=== PATIENT | male | born 1945 | race Caucasian/White ===

== ENCOUNTER 2019-11-22 14:24 | Inpatient (IN) | payer OTHER ==
[~2019-11-22] VITALS: Ht 165.1 cm; Wt 73.9 kg
[~2019-11-22 14:24] MED LIST: ASPIRIN EC325 M1 PO; B12INJ; FEVERALL JR 32325 MG RECTAL; FLAGYL500 MG PO; GLIPIZIDE ER10 MG PO; LEVAQUIN 500 M500 M2 PO; LISINOPRIL5 MG PO; LOPRESSOR50 PO; MUCINEX600 MG PO; OMEPRAZOLE 20 M20 M1 PO; PREDNISONE 10 M10 M1 PO; SIMVASTATIN80 MG; TAMSULOSIN HCL0.4 MG PO
[2019-11-22 14:56] LABS: ABSOLUTE LYMPHOCYTES 0.6 thou/uL (0.8-5.3); ABSOLUTE MONOCYTES 0.3 thou/uL (0.0-1.2); ABSOLUTE NEUTROPHILS 4.1 thou/uL (1.6-8.1); EOSINOPHILS 0.6 %; HEMATOCRIT 41.3 % (42.0-52.0); HEMOGLOBIN 14.1 gm/dL (14.0-18.0); MCH 29.7 pg (26.0-34.0); MCHC 34.2 g/dL (28.0-37.0); MCV 86.8 fL (80.0-100.0); MONOCYTES 6.3 %; MPV 8.8 fl. (7.2-11.1); NUCLEATED RBCS 0 /100WBC; PLATELET COUNT* 183 thou/uL (150-400); POLYS 81.1 %; RBC 4.75 mil/uL (4.50-6.00); RDW-CV 13.3 % (10.5-14.5)
[2019-11-22 15:04] LABS: CALCIUM 8.5 mg/dL (8.5-10.1); CREATININE 1.3 mg/dL (0.6-1.3); POTASSIUM 4.9 mmol/L (3.5-5.1)
[2019-11-22 15:07] LABS: APTT 24.8 Seconds (25.0-31.3); PROTIME 10.3 Seconds (9.20-11.50)
[2019-11-22] MEDS ORDERED: METFORMIN HCL500 M3 PO (15:16)
[2019-11-22] MEDS ORDERED: ALOGLIPTIN12.5 MG PO (15:16)
[2019-11-22] MEDS ORDERED: LIPITOR40 MG PO (15:16)
[2019-11-22 15:17] LABS: ALBUMIN 3.2 g/dL (3.4-5.0); CK-MB MASS 1.4 ng/mL (<0.5-3.6); MAGNESIUM 1.9 mg/dL (1.8-2.4); TOTAL BILIRUBIN 0.6 mg/dL (<0.1-1.0)
[2019-11-22] MEDS ORDERED: SLOW FE142 MG PO (15:18)
[2019-11-22] MEDS ORDERED: FOLIC ACID1 MG PO (15:18)
[2019-11-22] MEDS ORDERED: FISH OIL 1,0001 EAC9 PO (15:19)
[2019-11-22] MEDS ORDERED: GARLIC OIL1000 MG PO (15:19)
[2019-11-22 22:23] VITALS: BP 136/38
[2019-11-22 22:50] VITALS: BP 154/50
[2019-11-23 04:00] VITALS: BP 138/63
--- NOTE | 2019-11-23 05:57 | NUR ---
Assumed pt care at 2250, Aox4, up with assist- gait unsteady. O2 sat 90's 2L NC. Pt Sinus sahara. Pt denies pain. Admission assessment as charted. NIH scored 1. Pt state he is having double vision. IVF infussing as ordered. Fall precaution in placed. Pt NPO for cardiology consult. Pt for neuro, PT/OT/ST consult. Will continue to monitor.
[2019-11-23 07:47] LABS: ABSOLUTE BASOPHILS 0.1 thou/uL (0.0-0.2); ABSOLUTE EOSINOPHILS 0.1 thou/uL (0.0-0.7); ABSOLUTE LYMPHOCYTES 0.6 thou/uL (0.8-5.3); ABSOLUTE MONOCYTES 0.4 thou/uL (0.0-1.2); HEMATOCRIT 39.8 % (42.0-52.0); HEMOGLOBIN 13.6 gm/dL (14.0-18.0); LYMPHOCYTES 11.1 %; MCH 29.5 pg (26.0-34.0); MCHC 34.2 g/dL (28.0-37.0); MCV 86.3 fL (80.0-100.0); MONOCYTES 8.6 %; MPV 8.4 fl. (7.2-11.1); NUCLEATED RBCS 0 /100WBC; PLATELET COUNT* 165 thou/uL (150-400); POLYS 78.3 %; RBC 4.61 mil/uL (4.50-6.00); RDW-CV 13.6 % (10.5-14.5); WBC 5.1 thou/uL (4.0-11.0)
[2019-11-23 08:00] VITALS: BP 165/60
[2019-11-23 08:06] LABS: ANION GAP 8 mmol/L (7-16); BUN 10 mg/dL (7-18); CALCIUM 8.4 mg/dL (8.5-10.1); CHLORIDE 106 mmol/L (98-107); CHOLESTEROL 116 mg/dL (<200); CO2 26 mmol/L (21-32); CREATININE 1.3 mg/dL (0.6-1.3); GLUCOSE 126 mg/dL (70-99); HDL CHOLESTEROL 39 mg/dL (>40); LDL CHOLESTEROL 44 mg/dL (<100); POTASSIUM 4.2 mmol/L (3.5-5.1); SERUM ASSESSMENT Clear; SODIUM 140 mmol/L (136-145); TRIGLYCERIDE 167 mg/dL (<150); VLDL 33 mg/dL (<40)
--- NOTE | 2019-11-23 09:01 | EKG ---
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 : 1945 Requested By: Jason Plascencia Order Number: [id number] MD: Ye Moreau Measurements Intervals [place] Rate: 39 P: -30 LA: 216 QRS: -58 QRSD: 115 T: 117 QT: 497 QTc: 401 Interpretive Statements Sinus bradycardia Left anterior fascicular block Possible anterior infarct, age indeterminate Compared to ECG 07/05/2012 17:09:50 Left anterior fascicular block now present Sinus rhythm no longer present Myocardial infarct finding still present Electronically Signed On 11-23-2019 9:00:46 CDT by Ye Moreau [email or web address] <ELECTRONICALLY SIGNED> By: Ye Moreau MD, [facility] 11/23/19 0900 1446 144 Ye Moreau MD, [facility] /EPI
[2019-11-23 11:57] VITALS: BP 172/71
--- NOTE | 2019-11-23 15:13 | NUR ---
Pt is A&O. Resides at home with his dtr and RAKESH. Independent, family assists as needed. Pt has a walker and cane that he uses for mobility. Hx of HH. No hx of SNF. Goal is home at vt. Following.
--- NOTE | 2019-11-23 16:12 | 2DMMODE ---
[place] [address] 2 D/M-MODE ECHOCARDIOGRAM Name: ELVIRA,JOHN Room: [address] IN .R.#: [id number] Admission: 11/22/19 Attend Phys: Baldomero Neal, Discharge: Date of : 45 Date of Service: 11/23/19 1611 Report #: [id number] THIS REPORT FOR: cc: [facility] - Clinic physician unknown [facility] - Clinic physician unknown Ye Moreau MD [facility] ~ APPROVED REPORT Study performed: 11/23/2019 12:39:05 EXAM: Comprehensive 2D, Doppler, and color-flow Echocardiogram Patient Location: In-Patient BSA: 1.86 HR: 53 bpm BP: 138/63 mmHg Other Information Study Quality: Fair Indications CVA/TIA Bradycardia Echo Enhancing Agent Indication: Rule out Shunt Agent(s) / Amount(s) Used: Agitated Saline cc 2D Dimensions IVSd: 13.60 (7-11mm) LVOT Diam: 18.07 (18-24mm) LVDd: 49.29 mm PWd: 10.49 (7-11mm) Ascending Ao: 31.76 (22-36mm) LVDs: 41.95 (25-40mm) Aortic Root: 31.58 mm Volumes Left Atrial Volume (Systole) LA ESV Index: 19.30 mL/m2 Aortic Valve AoV Peak Reji.: 1.12 m/s AO Peak Gr.: 5.00 mmHg LVOT Max P.94 mmHg AO Mean Gr.: 2.71 mmHg LVOT Mean P.47 mmHg LVOT Max V: 0.99 m/[place] [address] 2 D/M-MODE ECHOCARDIOGRAM Name: RENETTA FELIX Room: [address] IN .R.#: [id number] Admission: 11/22/19 Attend Phys: Baldomero Neal, Discharge: Date of : 45 Date of Service: 11/23/19 1611 Report #: [id number] AO V2 VTI: 25.01 cm LVOT Mean V: 0.53 m/s TALI (VTI): 2.46 cm2 LVOT V1 VTI: 23.97 cm Mitral Valve E/A Ratio: 1.64 MV Decel. Time: 174.04 ms MV E Max Reji.: 0.80 m/s MV PHT: 50.47 ms MVA (PHT): 4.36 cm2 TDI E/Lateral E': 13.33 E/Medial E': 10.00 Medial E' Reji.: 0.08 m/s Lateral E' Reji.: 0.06 m/s Pulmonary Valve PV Peak Reji.: 0.86 m/s PV Peak Gr.: 2.96 mmHg Tricuspid Valve RAP Estimate: 5.00 mmHg TR Peak Gr.: 12.25 mmHg RVSP: 17.25 mmHg PA Pressure: 17.25 mmHg Left Ventricle The left ventricle is normal size. There is akinesis of the distal anterior anteroseptal and apical mathias. There is normal left ventricular wall thickness. Left ventricular systolic function is mild to moderately decreased. LVEF is 40-45%. Transmitral Doppler flow pattern suggests pseudonormalization. Right Ventricle The right ventricle is normal size. The right ventricular systolic function is normal. Atria The left atrium size is normal. Injection of bubbles documented no interatrial shunt. The right atrium size is normal. Aortic Valve The aortic valve is normal in structure. No aortic regurgitation is present. There is no aortic valvular stenosis. Mitral Valve The mitral valve is normal in structure. There is no mitral valve regurgitation noted. No evidence of [place] [address] 2 D/M-MODE ECHOCARDIOGRAM Name: RENETTA FELIX Room: [address] IN .R.#: [id number] Admission: 11/22/19 Attend Phys: Baldomero Neal, Discharge: Date of : 45 Date of Service: 11/23/19 1611 Report #: [id number] Tricuspid Valve The tricuspid valve is normal in structure. Trace tricuspid regurgitation. Pulmonic Valve The pulmonary valve is normal in structure. There is no pulmonic valvular regurgitation. Great Vessels The aortic root is normal in size. IVC is normal in size and collapses >50% with inspiration. Pericardium There is no pericardial effusion. <Conclusion> The left ventricle is normal size. There is normal left ventricular wall thickness. Left ventricular systolic function is mild to moderately decreased. LVEF is 40-45%. Transmitral Doppler flow pattern suggests pseudonormalization. There is akinesis of the distal anterior anteroseptal and apical mathias. Injection of bubbles documented no interatrial shunt. Trace tricuspid regurgitation. IVC is normal in size and collapses >50% with inspiration. <ELECTRONICALLY SIGNED> By: Ye Moreau MD, FACC 11/23/191610 10 10 Ye Moreau MD, FACC /INF
[2019-11-23 17:40] VITALS: BP 128/68
--- NOTE | 2019-11-23 19:00 | NUR ---
ASSUMED PT CARE AT 0730. ASSESSMENT COMPLETED CHARTED. ABLE TO MAKE NEEDS KNOWN. UP WITH 1 TO BSC. DOUBLE VISION STILL HAPPENING. PT TRIES TO GET UP WITHOUT CALLING OUT FREQUENTLY AND REEDUCATING EACH TIME. IV FLUIDS RUNNING PER EMAR. WILL CONTINUE TO MONITOR.
[2019-11-23 20:30] VITALS: BP 190/82
--- NOTE | 2019-11-23 20:30 | NUR ---
RECEIVED REPORT AND ASSUMED CARE OF PT EARLIER, ASSESSMENT COMPLETED AT THIS TIME. ASSISTED TO BSC, STEADY. TELEMETRY ON SHOWING SB. WILL CONT TO MONITOR AND ASSIST NEEDED.
[2019-11-24] VITALS: BP 169/64
[2019-11-24 02:06] LABS: GLYCOHEMOGLOBIN (HGB A1C) 6.4 % (4.8-5.6)
[2019-11-24 02:06] LABS: LDL (DIRECT) CHOL 56 mg/dL (0-99)
[2019-11-24 04:00] VITALS: BP 159/62
[2019-11-24 04:53] LABS: HEMOGLOBIN 13.7 gm/dL (14.0-18.0); MCH 29.2 pg (26.0-34.0); MCHC 33.5 g/dL (28.0-37.0); MCV 87.2 fL (80.0-100.0); NUCLEATED RBCS 0 /100WBC; PLATELET COUNT* 176 thou/uL (150-400); RBC 4.71 mil/uL (4.50-6.00); RDW-CV 13.4 % (10.5-14.5); WBC 4.3 thou/uL (4.0-11.0)
[2019-11-24 05:17] LABS: CALCIUM 8.3 mg/dL (8.5-10.1); CREATININE 1.1 mg/dL (0.6-1.3); POTASSIUM 4.6 mmol/L (3.5-5.1)
[2019-11-24 06:50] LABS: ABSOLUTE LYMPHOCYTES 0.2 thou/uL (0.8-5.3); PLATELET ESTIMATE ADEQUATE
--- NOTE | 2019-11-24 06:55 | NUR ---
AWAKE OCC DURING NIGHT TO BE ASSISTED TO BSC. VOIDING WITHOUT DIFFICULTY. PT REMAINS UP IN CHAIR THIS MORNING. STATES ABOUT 3 WHEN HE WAS AWAKE VISION WAS SINGLE BUT SOON AFTER VISION RETURNED TO DOUBLE. TELEMETRY CONT TO SHOW SB, DENIES DIZZINESS OR LIGHTHEADNESS. HS GOALS OF REST AND SAFETY ACHIEVED. HOURLY ROUNDING OBSERVED.
[2019-11-24 08:00] VITALS: BP 161/68
[2019-11-24] MEDS ORDERED: PLAVIX 75 MG TA75 M1 PO (10:27)
[2019-11-24] MEDS ORDERED: NORVASC5 MG PO (10:27)
[2019-11-24 13:00] VITALS: BP 161/68
[2019-11-24 13:49] VITALS: BP 135/61
--- NOTE | 2019-11-24 14:44 | NUR ---
ASSUMED PT CARE AT 0730. ASSESSMENT COMPLETED CHARTED. ABLE TO MAKE NEEDS KNOWN. NO C/O PAIN OR DISCOMFORT. UP WITH SBA DUE TO UNSTEADYNESS. DISCHARGE APPROVED. DISCHARGE COMPLETED AND WENT OVER WITH PT AND DAUGHTER. IV AND HEART MONITOR REMOVED. PT TAKEN DOWN TO DAUGHTERS CAR AT AROUND 1430. NO COMMENTS, QUESTIONS, OR CONCERNS NOTED.
--- NOTE | 2019-11-27 08:08 | CON ---
[address] [address] CONSULTATION Name: RENETTA FELIX Room: [address] IN M.R.#: [id number] Admission: 11/22/19 Attend Phys: Baldomero Neal MD Discharge: 11/24/19 Date of : 45 Report #: [id number] THIS REPORT FOR: //name// cc: [facility] physician unknown [facility] physician unknown ~ THIS REPORT FOR: //name// CC: Baldomero Neal [facility] CARDIOLOGY CONSULTATION INDICATION: Symptoms of possible stroke. HISTORY OF PRESENT ILLNESS: The patient is a 74-year-old white male who was admitted through the Emergency Room yesterday with complaints of generalized weakness, fatigue, dizziness and diplopia starting the day prior to admission. There is no prior history of CVA. He does have a history of coronary artery disease with 2-vessel coronary artery bypass grafting remotely. He has not seen a research associate policy in several years. He denies chest pain, tightness or pressure. He has chronic dyspnea, but no shortness of breath at rest. He denies orthopnea or paroxysmal nocturnal dyspnea. He is without other cardiac complaint at this time. PAST MEDICAL HISTORY: 1. Coronary artery disease with 2-vessel coronary artery bypass grafting in November of 1999. 2. Catheterization in 1999 showed a totally occluded proximal left anterior descending coronary artery as well as a proximally occluded right coronary artery that filled by left to right collaterals. Ejection fraction at that time was calculated to be 37% with anteroapical hypokinesis and dyskinesis at the apex. 3. Hyperlipidemia. 4. Type 2 diabetes mellitus. 5. GERD. 6. Hypertension. FAMILY HISTORY: Noncontributory. SOCIAL HISTORY: The patient smokes cigarettes daily. He does not drink alcohol. ALLERGIES: None documented. HOME MEDICATIONS: Omeprazole 20 mg p.o. b.i.d., Flomax 0.4 mg daily, glipizide ER 5 mg q.a.c., aspirin 1 tablet daily, lisinopril 5 mg daily, [place] [address] CONSULTATION Name: ELVIRARENETTA Room: [address]#: [id number] Admission: 11/22/19 Attend Phys: Baldomero Neal MD Discharge: 11/24/19 Date of : 45 Report #: [id number] tartrate 25 mg b.i.d., vitamin B12 1000 mcg daily, atorvastatin 40 mg daily, metformin 1 tablet daily, alogliptin 12.5 mg daily, iron sulfate 324 mg daily, folate one 0.4 mg tablet daily, garlic 1000 mg daily, fish oil 1000 mg daily. PHYSICAL EXAMINATION: VITAL SIGNS: Blood pressure 172/71, pulse 58 and regular. GENERAL: This is a pleasant gentleman in no distress. Mood and affect appropriate. HEENT: Extraocular muscles intact. Mucous membranes are moist. NECK: Shows no jugular venous distention. I do not appreciate bruit. CHEST: Reveals diminished breath sounds without wheezes or rales. CARDIOVASCULAR: Reveals a regular rhythm without gallop or murmur. ABDOMEN: Reveals normal bowel sounds. The abdomen is soft and nontender. EXTREMITIES: Shows no edema. SKIN: Dry. LABORATORY DATA: A 12-lead EKG shows sinus bradycardia with left anterior fascicular block and delayed R-wave progression. Labs are reviewed. Sodium 140, potassium 4.2, chloride 106, bicarbonate 26, BUN 10, creatinine 1.3, serum glucose 126, AST 12, lipase 65. Total bilirubin 0.6, calcium 8.4, magnesium 1.9, alkaline phosphatase 75, ALT 16, total protein 7.0, albumin 3.2. EGFR 54. Lactic acid 0.8. Total CPK 71. CPK MB mass 1.4. Troponin less than 0.06. NT-proBNP 510. Total cholesterol 116, triglycerides 167, HDL 39, LDL 44. Hemoglobin A1c pending. Coags within normal limits. White blood cell count 5.1, hemoglobin 13.6, platelet count 165,000. Chest x-ray shows some mild hyperinflation without obvious pulmonary edema. IMPRESSION AND RECOMMENDATIONS: 1. Coronary artery disease, presently clinically stable. Continue daily aspirin and risk factor modification. 2. Hyperlipidemia. LDL at goal on current dose statin agent. 3. Hypertension. Adjust antihypertensive regimen to improve blood pressure control. 4. Bradycardia, likely due to metoprolol. We will decrease dose and see if the patient would tolerate a small dose. 5. Symptoms to suggest cerebrovascular accident, currently being evaluated by Neurology. 6. Chronic tobacco abuse, cessation advised. <ELECTRONICALLY SIGNED> By: Ye Moreau MD, FACC 11/27/19 0808 1603 [id number] Moreau MD, FACC /nt
== END 2019-11-24 14:30 | disposition home or self-care (01) | DRG 65 ==
LOC: M.ERS 14:24 → M.2W 16:12 → M.TBA-ER 16:12 → M.2W 22:41
PROVIDERS: Family Medicine; Psychiatry & Neurology Neurology; ADMIT Internal Medicine; ATTEND Internal Medicine
DX: I63.9 Cerebral infarction, unspecified (principal); E44.0 Moderate protein-calorie malnutrition; I50.22 Chronic systolic (congestive) heart failure; R00.1 Bradycardia, unspecified; I16.0 Hypertensive urgency; I65.21 Occlusion and stenosis of right carotid artery; I25.10 Atherosclerotic heart disease of native coronary artery without angina pectoris; F17.210 Nicotine dependence, cigarettes, uncomplicated; E11.9 Type 2 diabetes mellitus without complications; K21.9 Gastro-esophageal reflux disease without esophagitis; E78.5 Hyperlipidemia, unspecified; I11.0 Hypertensive heart disease with heart failure; Z79.82 Long term (current) use of aspirin; Z71.6 Tobacco abuse counseling; Z68.27 Body mass index [BMI] 27.0-27.9, adult

== ENCOUNTER → 2019-12-20 | Outpatient (CLI) | payer MEDICARE, OTHER ==
[~2019-12-20] MED LIST changes: +ALOGLIPTIN12.5 MG PO; +FISH OIL 1,0001 EAC9 PO; +FOLIC ACID1 MG PO; +GARLIC OIL1000 MG PO; +LIPITOR40 MG PO; +METFORMIN HCL500 M3 PO; +NORVASC5 MG PO; +PLAVIX 75 MG TA75 M1 PO; +SLOW FE142 MG PO
--- NOTE | 2019-12-20 16:47 | CARDNUC ---
[place] [address] CARDIAC NUCLEAR IMAGING REPORT Name: ELVIRARENETTA Nena Room: [facility]#: [id number] Admission: 12/20/19 Attend Phys: Ye Moreau, Discharge: Date of : 45 Date of Service: 12/20/19 1647 Report #: [id number] THIS REPORT FOR: cc: [facility] - Clinic physician unknown [facility] - Clinic physician unknown Ye Moreau MD [facility] ~ APPROVED REPORT Study performed: 12/20/2019 14:45:30 Exam: Nuclear Stress Test Indication: Abnormal EKG, Fatigue Patient Location: Out-Patient Stress Tech: Luma Roth Stress Nurse: Ree Alegria RN Ht: 5 ft 4 in Wt: 174 lbs BSA: 1.84 m2 BMI: 29.86 Medical History Medical History: CAD s/p CABG, CAD s/p IL, HTN, Hyperlipidemia, Diabetes, Smoking Medications: amlodipine, atorvastatin, plavix, lisinopril Allergies: No known drug allergies Cardiac Risk Factors: Age, Current Smoker, Diabetes (non-insulin), FHX of CAD, HTN, Hyperlipidemia Previous Cardiac Procedures: CABG, Myocardial infarction Exercise History: Sedentary Stress Test Details Stress Test: Pharmacologic stress testing performed using 0.4 mg of regadenoson per 5 mL given IV over 10 seconds. Reason for pharmacologic stress test: physical limitation. HR Resting HR: 45 bpm Max Heart Rate (APMHR): 146 bpm Max HR Achieved: 75 bpm Target HR (85% APMHR): 124 bpm % of APMHR: 51 Recovery HR: 74 bpm BP Resting BP: 116/64 mmHg Max BP: 112/[place] [address] CARDIAC NUCLEAR IMAGING REPORT Name: ELVIRARENETTA Barrett Room: [facility]#: [id number] Admission: 12/20/19 Attend Phys: Ye Moreau, Discharge: Date of : 45 Date of Service: 12/20/19 1647 Report #: [id number] ECG Resting ECG: Sinus Bradycardia Stress ECG: Sinus Rhythm ST Change: None Arrhythmia: APC's Recovery ECG: Sinus Rhythm Recovery ST Change: None Recovery Arrhythmia: APC's Clinical Reason for Termination: Completed protocol The patient tolerated Lexiscan infusion without significant cardiac symptoms. Nurse Comments pt walks with a walker. gait unsteady Stress ECG Conclusion The baseline twelve-lead EKG shows sinus rhythm without significant ST segment abnormality. EKGs obtained during and post Lexiscan infusion show sinus rhythm with no significant ST segment changes when compared to baseline. There were no significant stress-induced arrhythmias. NM EXAM: Myocardial Perfusion REST/STRESS Imaging Protocol: Rest Tc-99m/Stress Tc-99m 1 day Resting Data Rest SPECT myocardial perfusion imaging was performed in supine position 30 minutes following the intravenous injection of 11.3 mCi of Tc-99m Sestamibi. Time of rest injection: 1310 Date: 12/20/2019 The images were gated to evaluate regional wall motion and calculate left ventricular ejection fraction. Administration Route: IV Administration Site: Right Arm Pharmacologic Stress Pharmacologic stress test was performed by injecting Regadenoson 0.4 mg IV push followed by the intravenous injection of 34.4 mCi of Tc-99m Sestamibi. Time of stress injection: 14:40 Date: 12/20/2019 Administration Route: IV Administration Site: Right Arm Heart Rate at time of stress injection: 75 bpm. Gated Stress SPECT was performed 40 [place] [address] CARDIAC NUCLEAR IMAGING REPORT Name: RENETTA FELIX Room: [facility]#: [id number] Admission: 12/20/19 Attend Phys: Ye Moreau, Discharge: Date of : 45 Date of Service: 12/20/19 1647 Report #: [id number] injection. The images were gated to evaluate regional wall motion and calculate left ventricular ejection fraction. Prone imaging was performed. Study Quality Study: Good Artifact: No artifact Study Data At rest, the left ventricular ejection fraction was 48%.. Post stress, the left ventricular ejection was 39%.. TID = 1.05. Perfusion Perfusion images show a large in size severe intensity fixed defect involving the mid to apical anterior wall and apex. No other significant fixed or reversible defects are identified. Wall Motion Gated studies show akinesis of the apex and distal anteroseptal mathias. Nuclear Conclusion ECG Findings: negative for ischemia Clinical Findings: negative for ischemia Nuclear Findings: negative for ischemia Exercise Capacity: not assessed Left Ventricular Function: abnormal Perfusion images show evidence of prior anteroapical infarct. Global LV systolic function appears moderately decreased with wall motion abnormalities outlined above. This is not a high risk study. <Conclusion> The baseline twelve-lead EKG shows sinus rhythm without significant ST segment abnormality. EKGs obtained during and post Lexiscan infusion show sinus rhythm with no significant ST segment changes when compared to baseline. There were no significant stress-induced arrhythmias. <ELECTRONICALLY SIGNED> By: Ye Moreau MD, FACC 12/20/19 1647 46 46 Ye Moreau MD, FACC /INF
== END ==
LOC: M.NUC 12-13 15:28
PROVIDERS: ATTEND Internal Medicine Cardiovascular Disease
DX: I25.10 Atherosclerotic heart disease of native coronary artery without angina pectoris (principal)

== ENCOUNTER 2021-04-17 16:45 | Inpatient (IN) | payer MEDICARE, OTHER ==
[~2021-04-17] VITALS: Ht 165.1 cm; Wt 78.9 kg
[2021-04-17 16:50] VITALS: BP 132/54
[2021-04-17 17:18] LABS: HEMATOCRIT 25.4 % (42.0-52.0); HEMOGLOBIN 8.5 gm/dL (14.0-18.0); MCH 29.8 pg (26.0-34.0); MCHC 33.3 g/dL (28.0-37.0); MCV 89.5 fL (80.0-100.0); MPV 7.1 fl. (7.2-11.1); NUCLEATED RBCS 0 /100WBC; PLATELET COUNT* 242 thou/uL (150-400); RBC 2.84 mil/uL (4.50-6.00); RDW-CV 14.9 % (10.5-14.5); WBC 6.8 thou/uL (4.0-11.0)
[2021-04-17 17:41] LABS: CALCIUM 8.7 mg/dL (8.5-10.1); CREATININE 1.7 mg/dL (0.6-1.3); POTASSIUM 5.2 mmol/L (3.5-5.1)
[2021-04-17 17:45] LABS: ALBUMIN 3.4 g/dL (3.4-5.0); TOTAL BILIRUBIN 0.4 mg/dL (<0.1-1.0); TOTAL PROTEIN 6.8 g/dL (6.4-8.2)
[2021-04-17 17:49] LABS: ABSOLUTE BASOPHILS 0.1 thou/uL (0.0-0.2); ABSOLUTE LYMPHOCYTES 0.2 thou/uL (0.8-5.3); ABSOLUTE MONOCYTES 0.3 thou/uL (0.0-1.2); ABSOLUTE NEUTROPHILS 6.3 thou/uL (1.6-8.1); PLATELET ESTIMATE ADEQUATE
[2021-04-17 22:31] VITALS: BP 140/59
[2021-04-17 23:20] LABS: URINE BILIRUBIN NEGATIVE (Negative); URINE BLOOD NEGATIVE (Negative); URINE CLARITY CLEAR; URINE COLOR YELLOW; URINE GLUCOSE-RANDOM NEGATIVE (Negative); URINE KETONES NEGATIVE (Negative); URINE LEUKOCYTES-REFLEX NEGATIVE (Negative); URINE NITRITE-REFLEX NEGATIVE (Negative); URINE PROTEIN NEGATIVE (Negative); URINE SPECIFIC GRAVITY 1.015 (1.005-1.030)
[2021-04-17 23:52] VITALS: BP 135/60
[2021-04-18 03:19] VITALS: BP 119/54
--- NOTE | 2021-04-18 05:37 | NUR ---
PT ARRIVED TO THE UNIT AT ABOUT MIDNIGHT. A&O X 4. ON 2L. C/O BACK PAIN, FENTANYL GIVEN X 2. USES URINAL TO VOID. NPO FOR IR CONSULT. IVF INFUISING. CALL LIGHT WITHIN REACH. WILL CONTINUE TO MONITOR.
[2021-04-18 06:29] VITALS: BP 136/54
[2021-04-18 08:30] VITALS: BP 116/50
[2021-04-18 08:46] LABS: CALCIUM 8.5 mg/dL (8.5-10.1); CREATININE 1.4 mg/dL (0.6-1.3); POTASSIUM 5.4 mmol/L (3.5-5.1)
--- NOTE | 2021-04-18 09:07 | NUR ---
Consult made for IR to evaluate compression fracture at L1. Report does not say it is definitely an acute fracture. Verbage is "acute appearing" Notified nurse that an MRI per Dr. Booth was necessary to determine if kyphoplasty or vertebroplasty is needed. Patient is also on Lovenox and it will need to be held 24-48 hours.
--- NOTE | 2021-04-18 10:11 | EKG ---
[place] [address] ELECTROCARDIOGRAM REPORT Name: RENETTA FELIX Room: [address] IN .R.#: [id number] Admission: 04/17/21 Attend Phys: Mayte Wallace, Discharge: Date of : 45 Date of Service: 04/17/211651 Report #: [id number] THIS REPORT FOR: //name// [facility] ED Test Date: 2021-04-17 Test Time: 16:52:17 Pat Name: RENETTA FELIX Department: Room: [facility] Gender: M Cook Specialty: : 1945 Requested By: David Gardner Order Number: [id number] MD: Clay Courtney Measurements Intervals [place] Rate: 57 P: -66 CT: 230 QRS: -49 QRSD: 89 T: 115 QT: 377 QTc: 367 Interpretive Statements Sinus rhythm Prolonged CT interval anterolateral infarct, age indeterm Baseline wander in lead(s) V6 Compared to ECG 11/22/2019 14:46:19 First degree AV block now present Sinus bradycardia no longer present Myocardial infarct finding still present Electronically Signed On 04-18-2021 10:11:19 RECORDS MANAGEMENT DIRECTOR by Clay Courtney [email or web address] <ELECTRONICALLY SIGNED> By: Clay Courtney MD, [facility] 04/18/21 1011 51 51 Clay Courtney MD, [facility] /EPI
--- NOTE | 2021-04-18 10:22 | NUR ---
PRINTED CIRCUIT BOARD PCB DRAFTSMAN STATED PT NEEDS TO BE OFF PLAVIX X5 DAYS BEFORE KYPHOPLASTY CAN BE DONE.
[2021-04-18 12:00] VITALS: BP 134/57
--- NOTE | 2021-04-18 14:20 | NUR ---
PTS DAUGHTER ASKED THIS RN FOR CARDIOLOGY CONSULT RE: PT HAVING WHAT SHE FEELS IS VASOVAGAL R/T PT HAVING COUGHING FITS THEN PASSING OUT. DR SALINAS NOTIFIED OF THIS. PT DAUGHTER ALSO REQ PERMISSION TO GIVE PT VIT B12 SHOT THAT PT NORMALLY RECEIVES AT HOME. DR SALINAS ALSO NOTIFIED OF THIS.
--- NOTE | 2021-04-18 15:40 | NUR ---
CM ASSESSMENT: PT A&O, INDEPENDENT WITH ADL'S, AND ACTIVE. PT RESIDES AT HOME WITH DTR AND RAKESH AND THEY ASSIST THE PT NEEDED. PT USES A WALKER FOR MOBILITY. PT HAS PAST HX OF HH. PT HAS 0 HX OF SNF. PHYSICIAN INFORMS THAT THE PT MAY BENEFIT FROM INPT ARU AT D/C. PT MAY LIKELY REMAIN INPT THROUGH THE WEEKEND. CM WILL REMAIN AVAILABLE TO ASSIST AND FOLLOW NEEDED.
[2021-04-18 16:00] VITALS: BP 129/62
[2021-04-18 19:56] VITALS: BP 129/58
[2021-04-19 01:17] VITALS: BP 146/42
--- NOTE | 2021-04-19 04:07 | NUR ---
PT A&OX4, VSS ON 3L O2 NC, PT REPOSITIONED Q2H, IV FLUIDS INFUSING ORDERED. PRN IV & PO PAIN MEDS REQUESTED AND GIVEN ORDERED. WILL CONTINUE TO MONITOR.
[2021-04-19 06:24] VITALS: BP 142/73
[2021-04-19 06:36] LABS: URINE POTASSIUM-RANDOM 35.2 mmol/L
[2021-04-19 08:00] VITALS: BP 130/49
[2021-04-19 08:43] LABS: HEMATOCRIT 24.4 % (42.0-52.0); HEMOGLOBIN 8.2 gm/dL (14.0-18.0); MCH 29.9 pg (26.0-34.0); MCHC 33.7 g/dL (28.0-37.0); MCV 88.7 fL (80.0-100.0); MPV 7.4 fl. (7.2-11.1); RBC 2.75 mil/uL (4.50-6.00); RDW-CV 14.8 % (10.5-14.5); WBC 4.6 thou/uL (4.0-11.0)
[2021-04-19 09:00] LABS: ALBUMIN 2.6 g/dL (3.4-5.0); CALCIUM 8.2 mg/dL (8.5-10.1); CREATININE 1.3 mg/dL (0.6-1.3); MAGNESIUM 1.9 mg/dL (1.8-2.4); TOTAL BILIRUBIN 0.4 mg/dL (<0.1-1.0); TOTAL PROTEIN 5.9 g/dL (6.4-8.2)
[2021-04-19 09:02] LABS: POTASSIUM 4.6 mmol/L (3.5-5.1)
[2021-04-19 12:00] VITALS: BP 130/52
[2021-04-19 16:00] VITALS: BP 134/58
--- NOTE | 2021-04-19 16:50 | NUR ---
PTS PAIN MUCH BETTER TODAY OVERALL, PER PT. PT ABLE TO SIT ON SIDE OF BED FOR MEALS. MILITARY NURSE CONSULTED DAUGHTER STATES PT HAD HX CVA AND WAS SUPPOSED TO F/U WITH MILITARY NURSE OUT PT HOWEVER NEVER DID. DAUGHTER STATES PT FREQUENTLY COUGHS WITH CLEAR LIQUIDS AT HOME. WITH ADEQUATE POSITIONING, PT SWALLOWS WITHOUT S/S ASPIRATION HERE. PLAN SURGERY WEDNESDAY, PAIN CONTROL UNTIL THEN.
--- NOTE | 2021-04-19 18:28 | NUR ---
PT DAUGHTER REQUESTING [facility] OR [facility] FOR REHAB ON D/C IF PT QUALIFIES
[2021-04-19 22:20] VITALS: BP 110/59
[2021-04-20 01:45] VITALS: BP 130/64
[2021-04-20 04:54] LABS: HEMATOCRIT 22.8 % (42.0-52.0); HEMOGLOBIN 7.7 gm/dL (14.0-18.0); MCH 29.6 pg (26.0-34.0); MCHC 33.7 g/dL (28.0-37.0); MCV 87.6 fL (80.0-100.0); MPV 7.6 fl. (7.2-11.1); RBC 2.61 mil/uL (4.50-6.00); RDW-CV 14.8 % (10.5-14.5); WBC 3.9 thou/uL (4.0-11.0)
[2021-04-20 05:09] LABS: CREATININE 1.3 mg/dL (0.6-1.3); POTASSIUM 3.7 mmol/L (3.5-5.1)
[2021-04-20 06:27] VITALS: BP 135/76
--- NOTE | 2021-04-20 07:25 | NUR ---
CHANGE OF SHIFT REPORT GIVEN PATIENT SEEN AT BEDSIDE, IN BED RESTING ASSUMED PATIENT CARE
[2021-04-20 08:00] VITALS: BP 121/44
--- NOTE | 2021-04-20 08:01 | CON ---
[address] [address] CONSULTATION Name: RENETTA FELIX Room: [address] IN M.R.#: [id number] Admission: 04/17/21 Attend Phys: Mayte Wallace MD Discharge: Date of : 45 Report #: [id number] THIS REPORT FOR: cc: [facility] - Clinic physician unknown [facility] - Clinic physician unknown Marilynn Olmos MD [facility] ~ DATE OF CONSULTATION: 04/19/2021 CARDIOLOGY FOLLOWUP VISIT HISTORY OF PRESENT ILLNESS: The patient feels fairly well today. He is still having back pain however. He apparently has a collapsed vertebra. He has not had any further syncope. We are following him for syncope. He has a history of bypass surgery, previous CVA, and ischemic cardiomyopathy. Both of his syncopes have happened when he swallowed coffee and then coughed up phlegm and swallowed the phlegm. He is not a very good historian. Additionally, this man is anemic with a hemoglobin of only about 8. The exact etiology is unclear. His monitor today shows normal sinus rhythm with VPCs and APCs. PHYSICAL EXAMINATION: VITAL SIGNS: His pulse was 69, blood pressure 130/49, temperature 36.6, respirations 16, O2 sat was 91% on 3 liters. There was no jugular venous distention or hepatojugular reflux. LUNGS: Clear to auscultation and percussion. HEART: Revealed normal first and second heart sound. There is a soft S4. There was no S3. There were no murmurs, rubs, thrills, heaves or gallops. PMI is nondisplaced. ABDOMEN: Soft, flat, nontender, no palpable masses, no organomegaly. EXTREMITIES: Examination of his extremities revealed no cyanosis, clubbing or edema. IMPRESSION: 1. Syncope, which may in fact be vasovagal syncope or neurocardiogenic syncope. 2. Coronary artery disease. 3. Status post bypass graft surgery. 4. Ischemic cardiomyopathy. 5. Status post cerebrovascular accident. 6. Anemia. 7. Hypoxemia. RECOMMENDATIONS: I would get carotid Dopplers as he is known to have mild right carotid stenosis. He is to get a monitor when he goes home[place] [address] CONSULTATION Name: RENETTA FELIX Room: [address]#: [id number] Admission: 04/17/21 Attend Phys: Mayte Wallace MD Discharge: Date of : 45 Report #: [id number] table when he is overall better. He is supposed to have surgery on his back, so it have to be sometime after that back surgery. <ELECTRONICALLY SIGNED> By: Marilynn Olmos MD, [facility] 04/20/21 0801 [id number]. Ochoa Olmos MD, [facility] /nt
--- NOTE | 2021-04-20 11:12 | CON ---
[address] [address] CONSULTATION Name: RENETTA FELIX Room: [address] IN M.R.#: [id number] Admission: 04/17/21 Attend Phys: Mayte Wallace MD Discharge: Date of : 45 Report #: [id number] THIS REPORT FOR: cc: [facility] - Clinic physician unknown [facility] - Clinic physician unknown Marilynn Olmos MD [facility] ~ DATE OF CONSULTATION: 04/20/2021 CARDIOLOGY HOSPITAL FOLLOWUP NOTE HISTORY OF PRESENT ILLNESS: The patient says he feels better today. He is having a little less back pain. He denies any chest pain or angina. He is not having shortness of breath. He has not had any syncope or near syncope. His monitor shows normal sinus rhythm with rare VPCs. He had carotid Dopplers done yesterday, which showed a 50-69% obstruction on the right carotid and 50% or less on the left. Note today, his hemoglobin is 7.7. His white count is 3.9. Platelet count was 197,000. He is awaiting some sort of surgical procedure for compression fracture. Exactly why he is so anemic and why he continues to persist and even gets worse with his anemia is unclear. 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 Perhaps Hematology should be consulted. I do note that his hemoglobin on admission was 8.5. I think he has been transfused. A prior hemoglobin is said to be 13. IMPRESSION: 1. Apparent syncopal spells. 2. Coronary artery disease. 3. Status post coronary artery bypass graft surgery. 4. Status post cerebrovascular accident. 5. Ischemic cardiomyopathy. 6. Chronic kidney disease. 7. Bilateral carotid stenosis that is mild on the left and moderate on the right. 8. Anemia of uncertain cause that seems to be worsening. RECOMMENDATION: I would aggressively pursue the anemia. He will need an outpatient monitor. It is probably not safe to do carotid sinus massage on this gentleman, particularly at this time. <ELECTRONICALLY SIGNED> By: Marilynn Olmos MD, FACC 04/20/21 1112 [id number]. Ochoa Olmos MD, FACC /nt
[2021-04-20 12:00] VITALS: BP 100/73
[2021-04-20 16:00] VITALS: BP 126/52
[2021-04-20 20:00] VITALS: BP 143/79
[2021-04-21 00:01] VITALS: BP 135/62
[2021-04-21 03:47] VITALS: BP 132/57
[2021-04-21 04:42] LABS: HEMATOCRIT 23.6 % (42.0-52.0); HEMOGLOBIN 7.9 gm/dL (14.0-18.0); MCH 29.9 pg (26.0-34.0); MCHC 33.5 g/dL (28.0-37.0); MCV 89.2 fL (80.0-100.0); MPV 7.3 fl. (7.2-11.1); RBC 2.65 mil/uL (4.50-6.00); RDW-CV 14.3 % (10.5-14.5); WBC 2.9 thou/uL (4.0-11.0)
[2021-04-21 04:49] LABS: CALCIUM 8.1 mg/dL (8.5-10.1); CREATININE 1.3 mg/dL (0.6-1.3); POTASSIUM 3.7 mmol/L (3.5-5.1)
[2021-04-21 08:38] VITALS: BP 142/55
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
[2021-04-21 12:00] VITALS: BP 139/61
--- NOTE | 2021-04-21 16:05 | NUR ---
patient was having a stress test and was in an intense amount of pain. Patient states 10 of 10 on pain scale. 50mcg of Fentanyl given to patient at 1445 and patient states that his pain was relieved. He stated that he felt so much better. it was easier to transfer patient over to table
--- NOTE | 2021-04-21 16:30 | NUR ---
PLAN OF CARE: PHYSICIAN INFORMS OF PLAN FOR THE PT TO REMAIN INPT AT THIS TIME. GI AND CARDIOLOGY CONSULTS PENDING. PLAN TO CONSULT INPT ARU PENDING PT BEING MEDICALLY STABLE. CM WILL REMAIN AVAILABLE TO ASSIST AND FOLLOW NEEDED.
[2021-04-21 20:00] VITALS: BP 134/52
[2021-04-22 01:48] VITALS: BP 137/55
[2021-04-22 04:41] LABS: HEMATOCRIT 25.2 % (42.0-52.0); HEMOGLOBIN 8.4 gm/dL (14.0-18.0); MCH 29.9 pg (26.0-34.0); MCHC 33.4 g/dL (28.0-37.0); MCV 89.5 fL (80.0-100.0); MPV 7.4 fl. (7.2-11.1); RBC 2.81 mil/uL (4.50-6.00); RDW-CV 14.4 % (10.5-14.5); WBC 3.5 thou/uL (4.0-11.0)
[2021-04-22 04:50] LABS: ALBUMIN 2.3 g/dL (3.4-5.0); CALCIUM 8.3 mg/dL (8.5-10.1); CREATININE 1.2 mg/dL (0.6-1.3); MAGNESIUM 1.9 mg/dL (1.8-2.4); POTASSIUM 4.1 mmol/L (3.5-5.1); TOTAL BILIRUBIN 0.4 mg/dL (<0.1-1.0); TOTAL PROTEIN 5.8 g/dL (6.4-8.2)
[2021-04-22 06:11] VITALS: BP 146/52
--- NOTE | 2021-04-22 07:25 | NUR ---
CHANGE OF SHIFT REPORT GIVEN PATIENT SEEN AT BEDSIDE, IN BED ASLEEP ASSUMED PATIENT CARE
[2021-04-22 08:00] VITALS: BP 127/50
--- NOTE | 2021-04-22 10:29 | CARDNUC ---
[place] [address] CARDIAC NUCLEAR IMAGING REPORT Name: RENETTA FELIX Room: [address] IN ..#: [id number] Admission: 04/17/21 Attend Phys: Mayte Wallace, Discharge: Date of : 45 Date of Service: 04/22/21 1029 Report #: [id number] THIS REPORT FOR: cc: [facility] - Clinic physician unknown [facility] - Clinic physician unknown Willis Monahan MD ~ APPROVED REPORT Imaging Protocol: Rest Tc-99m/Stress Tc-99m 1 day Study performed: 04/20/2021 13:54:00 NM Tech:FELIPE Narayan BMI: 0 Resting Data Rest SPECT myocardial perfusion imaging was performed in supine position 30 minutes following the intravenous injection of 11.4 mCi of Tc-99m Sestamibi. Time of rest injection: 1210 Date: 04/21/2021 The images were gated to evaluate regional wall motion and calculate left ventricular ejection fraction. Administration Route: IV Administration Site: Left AC Pharmacologic Stress Pharmacologic stress test was performed by injecting Regadenoson 0.4 mg IV push over 10-15 seconds immediately followed by the intravenous injection of 32.5 mCi of Tc-99m Sestamibi. Time of stress injection: 1355 Date: 04/21/2021 Administration Route: IV Administration Site: Left AC Gated Stress SPECT was performed 40 minutes after stress injection. The images were gated to evaluate regional wall motion and calculate left ventricular ejection fraction. Stress only was performed in the Supine position. Stress Test Details HR Max Heart Rate (APMHR): 144 bpm Target HR (85% APMHR): 122 [place] [address] CARDIAC NUCLEAR IMAGING REPORT Name: ELVIRARENETTA MICHELLE Room: [address]#: [id number] Admission: 04/17/21 Attend Phys: Mayte Wallace, Discharge: Date of : 45 Date of Service: 04/22/21 1029 Report #: [id number] Resting ECG: Sinus Rhythm, nonspecific ST-T abnormalities Stress ECG: Sinus Rhythm, nonspecific ST-T abnormalities ST Change: Non-ischemic Study Quality Study: Good Study Data Post stress, the left ventricular ejection was 38%.. SSS: 21 SRS: 23 SDS: 0 TID = 1.01. Perfusion There is a large area of severely reduced uptake in the mid and apical segment of the anterior wall which is seen on the stress images as well as the resting images. This area is hypokinetic and is most consistent with myocardial scar. Wall Motion Moderately decreased left ventricular systolic function. Nuclear Conclusion ECG Findings: negative for ischemia Clinical Findings: non-diagnostic Nuclear Findings: positive for infarct Exercise Capacity: not assessed Left Ventricular Function: Abnormal There is a predominantly fixed defect in the mid to apical anterior wall, consistent with infarct. There is at least moderately segmental LV dysfunction. <ELECTRONICALLY SIGNED> By: Willis Monahan MD 04/22/21 1029 1029 1029 Willis Monahan MD /INF
[2021-04-22 11:40] VITALS: BP 120/54
--- NOTE | 2021-04-22 13:37 | NUR ---
PLAN OF CARE: PT REMAINS TELE STATUS AT THIS TIME. GI AND CARDIOLOGY CONSULTED. PLAN TO CONSULT INPT ARU WHEN PT MEDICALLY STABLE. CM WILL REMAIN AVAILABLE TO ASSIST AND FOLLOW NEEDED.
[2021-04-22 16:00] VITALS: BP 131/74
[2021-04-23] VITALS (10 sets, daily range): BP systolic 111–165; BP diastolic 53–90
--- NOTE | 2021-04-23 17:21 | NUR ---
PLAN OF CARE: PHYSICIAN INFORMS OF PLAN FOR PT TO D/C TO INPT ARU PENDING PT BEING MEDICALLY STABLE POST KYPHOPLASTY AND PT/OT F/U. CM WILL REMAIN AVAILABLE TO ASSIST AND FOLLOW NEEDED.
[2021-04-24 00:32] VITALS: BP 146/58
[2021-04-24 05:12] LABS: HEMATOCRIT 26.6 % (42.0-52.0); HEMOGLOBIN 8.8 gm/dL (14.0-18.0); MCH 28.9 pg (26.0-34.0); MCV 87.7 fL (80.0-100.0); MPV 7.3 fl. (7.2-11.1); RBC 3.03 mil/uL (4.50-6.00)
[2021-04-24 05:32] VITALS: BP 147/64
[2021-04-24 05:41] LABS: ALBUMIN 2.4 g/dL (3.4-5.0); CALCIUM 8.6 mg/dL (8.5-10.1); CREATININE 1.3 mg/dL (0.6-1.3); POTASSIUM 4.3 mmol/L (3.5-5.1); TOTAL BILIRUBIN 0.3 mg/dL (<0.1-1.0); TOTAL PROTEIN 6.3 g/dL (6.4-8.2)
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
[2021-04-24 08:30] VITALS: BP 125/63
[2021-04-24 12:00] VITALS: BP 137/61
[2021-04-24 16:00] VITALS: BP 152/74
[2021-04-24 22:00] VITALS: BP 113/62
[2021-04-25] VITALS: BP 145/67
[2021-04-25 04:00] VITALS: BP 156/70
--- NOTE | 2021-04-25 07:20 | NUR ---
CHANGE OF SHIFT REPORT GIVEN PATIENT SEEN AT BEDSIDE, IN BED ASLEEP ASSUMED PATIENT CARE
[2021-04-25 08:00] VITALS: BP 114/72
--- NOTE | 2021-04-25 09:35 | NUR ---
PER , PT IS MED STABLE TO DC TO ARU. PER FREDY SHE WILL F/U WITH ARU TEAM TO SEE IF PT IS APPROPRIATE FOR ARU.
[2021-04-25 13:58] VITALS: BP 149/63
[2021-04-25 16:00] VITALS: BP 127/70
[2021-04-25] MEDS ORDERED: LEVALBUTER0.63 MG/3 INH (17:27)
[2021-04-25] MEDS ORDERED: LIDOPATCH1 EACH TOP (17:27)
[2021-04-25] MEDS ORDERED: HYDROCODON-ACE1 EAC7 PO (17:27)
[2021-04-25] MEDS ORDERED: TRAMADOL 50 MG50 MG PO (17:27)
[2021-04-25] MEDS ORDERED: PROTONIX40 M2 PO (17:27)
[2021-04-25 20:00] VITALS: BP 146/62
--- NOTE | 2021-04-25 22:56 | NUR ---
ASSUMED CARE OF PT AFTER REPORT AT 1930. PT A&OX4. VSS. PHYSICAL ASSESSMENT COMPLETED AND CHARTED. PT ON RA. PT ON MEDSURG STATUS. PT UP WITH 1 ASSIST TO BSC. PT WITH EPISODE OF BM TONIGHT. PT COMPLAINED OF BACK PAIN-MED GIVEN PER JUL. FALL PRECAUTIONS IN PLACE. CALL LIGHT WITHIN REACH. PT WITH DISCHARGE ORDER. GAVE REPORT TO CHEO SANCHEZ. PT TRANSFERRED TO INPATIENT REHAB VIA BED WITH BELONGINGS.
[2021-04-26] MEDS ORDERED: GLIPIZIDE ER2.5 MG PO (19:13)
== END 2021-04-25 22:36 | DRG 515 ==
LOC: M.ERS 16:45 → M.TBA-ER 19:19 → M.2W 19:19
PROVIDERS: Internal Medicine; Physician Assistant; ADMIT Internal Medicine; ATTEND Internal Medicine
PROC: 0QS03ZZ Reposition Lumbar Vertebra, Percutaneous Approach (ICD-10-PCS; principal; 2021-04-23)
PROC: 0QU03JZ Supplement Lumbar Vertebra with Synthetic Substitute, Percutaneous Approach (ICD-10-PCS; principal; 2021-04-23)
DX: S32.019A Unspecified fracture of first lumbar vertebra, initial encounter for closed fracture (principal); N17.0 Acute kidney failure with tubular necrosis; E87.1 Hypo-osmolality and hyponatremia; E87.5 Hyperkalemia; K21.9 Gastro-esophageal reflux disease without esophagitis; D50.9 Iron deficiency anemia, unspecified; I25.10 Atherosclerotic heart disease of native coronary artery without angina pectoris; Z95.1 Presence of aortocoronary bypass graft; K59.00 Constipation, unspecified; Z20.822 Contact with and (suspected) exposure to COVID-19

== ENCOUNTER 2021-04-25 17:46 | Inpatient (IN) | payer MEDICARE, OTHER ==
[~2021-04-25] VITALS: Ht 165.1 cm; Wt 78.9 kg
[~2021-04-25 17:46] MED LIST changes: +HYDROCODON-ACE1 EAC7 PO; +LEVALBUTER0.63 MG/3 INH; +LIDOPATCH1 EACH TOP; +PROTONIX40 M2 PO; +TRAMADOL 50 MG50 MG PO
[2021-04-25 23:15] VITALS: BP 134/70
[2021-04-26 08:06] LABS: HEMATOCRIT 26.9 % (42.0-52.0); MCHC 33.5 g/dL (28.0-37.0); MCV 86.5 fL (80.0-100.0); MPV 7.1 fl. (7.2-11.1); RBC 3.12 mil/uL (4.50-6.00); RDW-CV 13.8 % (10.5-14.5); WBC 2.6 thou/uL (4.0-11.0)
[2021-04-26 08:16] LABS: CALCIUM 8.7 mg/dL (8.5-10.1); CREATININE 1.3 mg/dL (0.6-1.3); POTASSIUM 4.3 mmol/L (3.5-5.1)
[2021-04-26 08:30] VITALS: BP 138/61
[2021-04-26] MEDS ORDERED: GLIPIZIDE ER2.5 MG PO (19:13)
[2021-04-26 19:40] VITALS: BP 124/58
[2021-04-27 07:30] VITALS: BP 148/69
[2021-04-27 19:38] VITALS: BP 135/67
[2021-04-28 07:45] VITALS: BP 145/67
[2021-04-28 19:00] VITALS: BP 132/52
[2021-04-29 07:48] VITALS: BP 134/65
[2021-04-29 20:00] VITALS: BP 108/59
[2021-04-30 04:26] LABS: HEMATOCRIT 27.7 % (42.0-52.0); HEMOGLOBIN 9.1 gm/dL (14.0-18.0); MCH 28.1 pg (26.0-34.0); MCHC 32.9 g/dL (28.0-37.0); MCV 85.2 fL (80.0-100.0); MPV 7.5 fl. (7.2-11.1); RBC 3.25 mil/uL (4.50-6.00); RDW-CV 14.1 % (10.5-14.5); WBC 3.1 thou/uL (4.0-11.0)
[2021-04-30 04:49] LABS: CALCIUM 8.6 mg/dL (8.5-10.1); CREATININE 1.7 mg/dL (0.6-1.3)
[2021-04-30 07:43] VITALS: BP 127/61
[2021-04-30 13:14] VITALS: BP 127/61
[2021-04-30] MEDS ORDERED: NICOTINE PATCH1 EAC2 TOP (13:47)
== END 2021-04-30 15:22 | disposition home health service (06) | DRG 948 ==
LOC: M.REH 17:46
PROVIDERS: ADMIT Physical Medicine & Rehabilitation; ATTEND Physical Medicine & Rehabilitation
DX: R53.81 Other malaise (principal); S32.019A Unspecified fracture of first lumbar vertebra, initial encounter for closed fracture; E87.1 Hypo-osmolality and hyponatremia; N17.9 Acute kidney failure, unspecified; K21.9 Gastro-esophageal reflux disease without esophagitis; E11.9 Type 2 diabetes mellitus without complications; F17.210 Nicotine dependence, cigarettes, uncomplicated; E87.5 Hyperkalemia; D50.9 Iron deficiency anemia, unspecified; I10 Essential (primary) hypertension; K59.00 Constipation, unspecified; I25.10 Atherosclerotic heart disease of native coronary artery without angina pectoris; R55 Syncope and collapse; Z86.73 Personal history of transient ischemic attack (TIA), and cerebral infarction without residual deficits; Z95.1 Presence of aortocoronary bypass graft; Z79.899 Other long term (current) drug therapy; W18.39XA Other fall on same level, initial encounter; Y93.89 Activity, other specified; Y92.098 Other place in other non-institutional residence as the place of occurrence of the external cause; Y99.8 Other external cause status